=== PATIENT | male | born 1985 | race Caucasian/White ===

== ENCOUNTER 2017-07-12 10:25 | Inpatient (IN) | payer MEDICAID ==
[~2017-07-12] VITALS: Ht 180.3 cm; Wt 56.3 kg
[~2017-07-12 10:25] MED LIST: ATARAX,VISTARIL50 MG PO; CARBIDOPA/LEVOD1 TA1 PO; LEVETIRACETAM500 MG PO; ZOFRAN4 MG PO
[2017-07-12 10:30] VITALS: BP 112/63
[2017-07-12 11:19] LABS: BASO % 0.1 % (0.0-1.0); EOS # 0.1 10*3/uL (0.0-0.4); EOS % 0.6 % (1.0-4.0); HEMATOCRIT 38.6 % (42.0-52.0); HEMOGLOBIN 13.1 g/dl (14.0-18.0); LYMPH # 1.5 10*3/uL (1.3-4.4); LYMPH % 18.6 % (27.0-41.0); MEAN CELL VOLUME 88.1 fl (80.0-94.0); MEAN CORPUSCULAR HGB 29.9 pg (27.0-31.0); MEAN CORPUSCULAR HGB CONC 33.9 g/dl (33.0-37.0); MEAN PLATELET VOLUME 9.3 fl (9.6-12.3); MONO # 0.6 10*3/uL (0.1-1.0); MONO % 6.7 % (3.0-9.0); NEUT % 73.8 % (47.0-73.0); PLATELET COUNT AUTOMATED 206 10*3/uL (130-400); RED BLOOD COUNT 4.38 10*6/uL (4.50-5.90); RED CELL DISTRI WIDTH 12.2 % (0-14.5); WHITE BLOOD COUNT 8.2 10*3/uL (4.8-10.8)
[2017-07-12 11:22] LABS: BILIRUBIN NEGATIVE (NEGATIVE); BLOOD 3+ (NEGATIVE); CLARITY CLEAR (CLEAR); COLOR YELLOW (YELLOW); GLUCOSE NEGATIVE (NEGATIVE); KETONE NEGATIVE (NEGATIVE); LEUKO ESTERASE NEGATIVE (NEGATIVE); NITRITE NEGATIVE (NEGATIVE); PH 5.5 (5.0-9.0); UROBILINOGEN 0.2 E.U./dl (0.2-1.0)
[2017-07-12 11:29] LABS: URINE AMPHETAMINES < 1000 (1000ng/ml); URINE BARBITURATES < 200 (200ng/ml); URINE BENZODIAZEPINES < 200 (200ng/ml); URINE CANNABINOIDS (THC) > 50 (50ng/ml); URINE COCAINE > 300 (300ng/ml); URINE METHADONE < 300 (300ng/ml); URINE OPIATES < 300 (300ng/ml)
[2017-07-12 11:30] LABS: MUCOUS 1+
[2017-07-12 11:31] LABS: CALCIUM OXALATE CRYSTALS TRACE; URINE PHENCYCLIDINE < 25 (25ng/ml)
[2017-07-12 11:34] LABS: ALBUMIN 3.9 gm/dl (3.1-4.5); ALKALINE PHOSPHATASE 41 U/L (45-117); BUN 12 mg/dl (7-24); CHLORIDE 105 mmol/L (98-107); CREATININE 0.96 mg/dL (0.70-1.30); POTASSIUM 3.8 mmol/L (3.5-5.1); SGOT/AST 16 IU/L (3-35); SGPT/ALT 21 U/L (12-78); SODIUM 139 mmol/L (136-145); TOTAL PROTEIN 7.4 gm/dL (6.4-8.2)
[2017-07-12 13:15] VITALS: BP 117/67
[2017-07-12 13:30] VITALS: BP 117/67
[2017-07-12 16:00] VITALS: BP 101/59
[2017-07-12 20:00] VITALS: BP 135/74
[2017-07-13] VITALS: BP 102/62
[2017-07-13 03:46] VITALS: BP 103/56
[2017-07-13 08:00] VITALS: BP 111/67
[2017-07-13 12:00] VITALS: BP 122/70
[2017-07-13 16:00] VITALS: BP 110/55
[2017-07-13 20:00] VITALS: BP 108/60
[2017-07-14] VITALS: BP 114/62
[2017-07-14 08:00] VITALS: BP 101/57
[2017-07-14 12:00] VITALS: BP 103/59
[2017-07-14 16:00] VITALS: BP 122/70
[2017-07-14 20:00] VITALS: BP 97/62
[2017-07-15] VITALS: BP 102/66
[2017-07-15 06:07] LABS: CREATININE 1.02 mg/dL (0.70-1.30)
[2017-07-15 06:22] LABS: BASO % 0.3 % (0.0-1.0); EOS # 0.2 10*3/uL (0.0-0.4); EOS % 2.3 % (1.0-4.0); HEMATOCRIT 41.9 % (42.0-52.0); HEMOGLOBIN 14.1 g/dl (14.0-18.0); LYMPH # 2.5 10*3/uL (1.3-4.4); LYMPH % 38.8 % (27.0-41.0); MEAN CELL VOLUME 89.7 fl (80.0-94.0); MEAN CORPUSCULAR HGB 30.2 pg (27.0-31.0); MEAN CORPUSCULAR HGB CONC 33.7 g/dl (33.0-37.0); MEAN PLATELET VOLUME 9.8 fl (9.6-12.3); MONO # 0.5 10*3/uL (0.1-1.0); MONO % 7.4 % (3.0-9.0); NEUT # 3.3 10*3/uL (2.3-7.9); NEUT % 50.7 % (47.0-73.0); PLATELET COUNT AUTOMATED 264 10*3/uL (130-400); RED BLOOD COUNT 4.67 10*6/uL (4.50-5.90); RED CELL DISTRI WIDTH 12.1 % (0-14.5); WHITE BLOOD COUNT 6.5 10*3/uL (4.8-10.8)
[2017-07-15 08:00] VITALS: BP 108/67
[2017-07-15] MEDS ORDERED: ROPINIROLE HYD0.5 MG PO (10:29)
[2017-07-15] MEDS ORDERED: ATARAX,VISTARIL50 MG PO (10:29)
[2017-07-15] MEDS ORDERED: ZOFRAN 4 MG ED2 TAB PO (10:29)
[2017-07-15 12:00] VITALS: BP 103/62
[2017-07-15 16:00] VITALS: BP 115/58
[2017-07-15 20:00] VITALS: BP 113/60
[2017-07-16] VITALS: BP 108/60
[2017-07-16 08:00] VITALS: BP 103/57
[2017-07-16 12:00] VITALS: BP 101/53
[2017-07-16 16:00] VITALS: BP 103/57
== END 2017-07-16 16:21 | disposition home or self-care (01) | DRG 896 ==
LOC: ED 10:25 → 4E 12:18 → EDHOLD 12:18 → 4E 12:38
PROVIDERS: Internal Medicine Hospice and Palliative Medicine; Nurse Practitioner Family; ADMIT Internal Medicine
DX: F11.23 Opioid dependence with withdrawal (principal); E43 Unspecified severe protein-calorie malnutrition; F14.10 Cocaine abuse, uncomplicated; G40.909 Epilepsy, unspecified, not intractable, without status epilepticus; I44.0 Atrioventricular block, first degree; F17.210 Nicotine dependence, cigarettes, uncomplicated; F41.9 Anxiety disorder, unspecified; G25.81 Restless legs syndrome; F12.10 Cannabis abuse, uncomplicated; B18.2 Chronic viral hepatitis C; D64.9 Anemia, unspecified; R31.29 Other microscopic hematuria; D72.810 Lymphocytopenia; Z71.6 Tobacco abuse counseling; Z88.0 Allergy status to penicillin; Z83.3 Family history of diabetes mellitus

== ENCOUNTER 2017-09-14 15:28 | Inpatient (IN) | payer OTHER ==
[~2017-09-14] VITALS: Ht 177.8 cm; Wt 57.2 kg
[~2017-09-14 15:28] MED LIST changes: +ROPINIROLE HYD0.5 MG PO; +ZOFRAN 4 MG ED2 TAB PO
[2017-09-14 15:40] VITALS: BP 109/69
[2017-09-14 16:00] LABS: BILIRUBIN NEGATIVE (NEGATIVE); BLOOD NEGATIVE (NEGATIVE); CLARITY CLEAR (CLEAR); COLOR YELLOW (YELLOW); GLUCOSE NEGATIVE (NEGATIVE); KETONE NEGATIVE (NEGATIVE); LEUKO ESTERASE 1+ (NEGATIVE); NITRITE NEGATIVE (NEGATIVE); UROBILINOGEN 0.2 E.U./dl (0.2-1.0)
[2017-09-14 16:01] LABS: BASO % 0.2 % (0.0-1.0); EOS # 0.1 10*3/uL (0.0-0.4); EOS % 0.5 % (1.0-4.0); HEMATOCRIT 44.8 % (42.0-52.0); HEMOGLOBIN 14.9 g/dl (14.0-18.0); LYMPH # 1.6 10*3/uL (1.3-4.4); LYMPH % 14.6 % (27.0-41.0); MEAN CELL VOLUME 88.7 fl (80.0-94.0); MEAN CORPUSCULAR HGB 29.5 pg (27.0-31.0); MEAN CORPUSCULAR HGB CONC 33.3 g/dl (33.0-37.0); MONO # 0.5 10*3/uL (0.1-1.0); MONO % 4.1 % (3.0-9.0); NEUT # 8.8 10*3/uL (2.3-7.9); NEUT % 80.2 % (47.0-73.0); PLATELET COUNT AUTOMATED 294 10*3/uL (130-400); RED BLOOD COUNT 5.05 10*6/uL (4.50-5.90); RED CELL DISTRI WIDTH 12.5 % (0-14.5); WHITE BLOOD COUNT 10.9 10*3/uL (4.8-10.8)
[2017-09-14 16:07] LABS: BACTERIA TRACE
[2017-09-14 16:10] LABS: URINE AMPHETAMINES < 1000 (1000ng/ml); URINE BARBITURATES < 200 (200ng/ml); URINE BENZODIAZEPINES > 200 (200ng/ml); URINE CANNABINOIDS (THC) > 50 (50ng/ml); URINE COCAINE > 300 (300ng/ml); URINE METHADONE < 300 (300ng/ml); URINE OPIATES < 300 (300ng/ml)
[2017-09-14 16:14] LABS: URINE PHENCYCLIDINE < 25 (25ng/ml)
[2017-09-14 16:17] LABS: ALBUMIN 4.2 gm/dl (3.1-4.5); ALKALINE PHOSPHATASE 61 U/L (45-117); BUN 10 mg/dl (7-24); CHLORIDE 102 mmol/L (98-107); CREATININE 0.99 mg/dL (0.70-1.30); POTASSIUM 4.9 mmol/L (3.5-5.1); SGOT/AST 25 IU/L (3-35); SGPT/ALT 36 U/L (12-78); SODIUM 138 mmol/L (136-145); TOTAL PROTEIN 8.9 gm/dL (6.4-8.2)
[2017-09-14 16:20] LABS: ETHYL ALCOHOL < 3.0 mg/dl (<3)
--- NOTE | 2017-09-14 16:22 | NUR ---
32 year old MALE, [place] admitted to room # 532 for stabilization. 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 . Compliant with admission procedure. Patient denies any anxiety, but is unable to sit still, taps toes to floor continuously, looks about room, unable to focus eyes on nurse during interview. See assessment forms for additional information about patient status.
[2017-09-14 16:31] VITALS: BP 117/69
[2017-09-14 16:52] LABS: LIPASE 203 U/L (73-393)
[2017-09-14 20:00] VITALS: BP 110/47
--- NOTE | 2017-09-14 22:04 | NUR ---
CALLED DR HAYWOOD ABOUT THE SECOND EKG THAT DR HEATON PLACED. DR HAYWOOD CANCELLLD THE ACTIVE ORDER
--- NOTE | 2017-09-14 23:30 | NUR ---
PATIENT RESTING COMFORTABLY IN BED AT THIS TIME. C/O CHRONIC BACK PAIN RATED A 7. RESPIRATIONS EASY/REG. NO SXS OF DISTRESS. PLEASANT/COOPERATIVE WITH CARE. CALL LIGHT IS IN REACH. WILL MONITOR.
[2017-09-15] VITALS: BP 106/69
--- NOTE | 2017-09-15 02:52 | NUR ---
Patient reports the following symptoms of withdrawal: body aches, leg pain, nausea anD cravings. Patient given scheduled/PRN medication to control withdrawal symptoms. Close observation will be maintained.
[2017-09-15 04:00] VITALS: BP 102/59
--- NOTE | 2017-09-15 04:01 | NUR ---
Patient resting. Responding to scheduled medications with fewer complaints of pain and anxiety.
[2017-09-15 08:00] VITALS: BP 99/49
--- NOTE | 2017-09-15 08:00 | NUR ---
PT IN BED SLEEPING, AROUSES EASILY. NO DISTRESS NOTED. PT DENIES PAIN BUT C/O OF MUSCLE SPASMS OF BACK AND RESTLESS LEGS. DENIES CHEST PAIN, N/V/D. LUNGS CLEAR ON AUSCULTATION. NO EDEMA NOTED.
--- NOTE | 2017-09-15 08:29 | NUR ---
PT REQUESTED MEDICATION FOR RESTLESS LEGS AND MUSCLE SPASMS OF THE BACK. REQUIP & ROBAXIN GIVEN.
--- NOTE | 2017-09-15 09:16 | NUR ---
PT IN BED SLEEPING, NO DISTRESS NOTED. MEDICATIONS SEEM TO BE WORKING. NO SPASMS NOTED.
[2017-09-15 12:00] VITALS: BP 107/81
[2017-09-15 16:00] VITALS: BP 115/64
--- NOTE | 2017-09-15 17:50 | NUR ---
PT GIVEN PRN PO ROBAXIN AND VISTARIL FOR MUSCLE ACHES AND ANXIETY. WILL MONITOR EFFECTIVENESS.
--- NOTE | 2017-09-15 18:16 | NUR ---
PER PT, PRN MEDICATIONS EFFECTIVE.
[2017-09-15 20:00] VITALS: BP 111/67
--- NOTE | 2017-09-15 21:10 | NUR ---
PT C/O RESTLESS LEGS AND NAUSEA. REQUIP AND TRAZADONE ADMINISTERED PO. WILL MONITOR FOR EFFECTIVENESS. PT PLEASANT AND COOPERATIVE, ALERT AND ORIENTED X 3. [facility].
--- NOTE | 2017-09-15 23:10 | NUR ---
PRN MEDS EFFECTIVE. PT RESTING PEACEFULLY IN BED AT THIS TIME. CALL LIGHT IN REACH.
[2017-09-16] VITALS: BP 121/71
--- NOTE | 2017-09-16 05:59 | NUR ---
24 HR chart check completed.
[2017-09-16 08:00] VITALS: BP 99/52
--- NOTE | 2017-09-16 10:27 | NUR ---
PT IN BED IN POSITION. C/O WITHDRAEAL S/S. MEDICATED PT WITH ZOFRAN 4 MG AND ROBAXIN 750 MG WELL SCHEDULED MEDS. ENCOURAGED PT TO CALL FOR PRN MEDS. DISCUSSED D/C PLAN FOR CONTINUING REHAB. EMOTIONAL SUPPORT PROVIDED. PT DOES NOT APPEAR TO HAVE A PLAN FOR FOLLOW UP OR DOESN'T SEEM TO K NOW WHERE HE'S GONNA GO.
--- NOTE | 2017-09-16 12:02 | NUR ---
Patient resting. Responding to scheduled medications with fewer complaints of pain and anxiety.RESPS EASY ON RA. VOICES NO NEEDS.CALL LIGHT IN REACH.
[2017-09-16 16:00] VITALS: BP 102/56
--- NOTE | 2017-09-16 17:40 | NUR ---
REQUIP 0.5 MG, MOTRIN 600 MG AND ZOFRAN 4 MG GIVEN FOR C/O RESTLESSNESS, LEG CRAMPING AND NAUSEA.
[2017-09-16 20:00] VITALS: BP 106/53
--- NOTE | 2017-09-16 20:12 | NUR ---
PT ADMINISTERED ROBAXIN AND BENTYL FOR MUSCLE ACHES AND ABDOMINAL CRAMPING. WILL MONITOR FOR EFFECTIVENESS. PT RESTING IN BED AT THIS TIME. CALL LIGHT IN REACH.
--- NOTE | 2017-09-16 21:12 | NUR ---
BENTYL AND ROBAXIN EFFECTIVE. PT RESTING IN BED, CALL LIGHT IN REACH.
--- NOTE | 2017-09-16 21:26 | NUR ---
PT C/O ANXIETY. VISTARIL 50MG CAPSULE ADMINISTERED PO. WILL MONITOR FOR EFFECTIVNESS. RESTING IN BED AT THIS TIME, CALL LIGHT IN REACH.
[2017-09-17] VITALS: BP 102/52
--- NOTE | 2017-09-17 02:48 | NUR ---
24 HR chart check completed.
--- NOTE | 2017-09-17 04:26 | NUR ---
PT RESTING IN BED AT THIS TIME, NO S/S OF DISTRESS. RESPIRATIONS EASY AND UNLABORED, CALL LIGHT IN REACH.
--- NOTE | 2017-09-17 07:20 | NUR ---
24 HR chart check completed.
[2017-09-17 08:00] VITALS: BP 102/53
--- NOTE | 2017-09-17 10:16 | NUR ---
D/C PLANNING: SPOKE WITH PATIENT. PATIENT STATED THAT HE HAS A SCHEDULED APPOINMTNET WITH [employer] FOR [employer]. RIANA CÁRDENAS B.A. SOA ARCHITECT
[2017-09-17 12:00] VITALS: BP 103/56
--- NOTE | 2017-09-17 15:49 | NUR ---
MEDICATED WITH VISTARIL & TYLENOL FOR C/O SWEATS, CHILLS, TREMORS VISIBLE. PT ENCOURAGED TO NOT WAIT SO LONG TO ASK.
[2017-09-17 16:00] VITALS: BP 107/58
--- NOTE | 2017-09-17 16:54 | NUR ---
SLEEPING AFTER MEDICATED. BLANKETS PULLED UP AROUND HEAD BUT ABLE TO SEE THE FACE & REP EASY & NONLABORED
[2017-09-17 20:00] VITALS: BP 110/65
--- NOTE | 2017-09-17 20:24 | NUR ---
PATIENT LAYING IN BED WITH SHEETS DRAWN OVER HEAD. PATIENT HAD COMPLAINTS OF HEADACHE, TREMORS, RESTLESSNESS, AND NAUSEA. PATIENT WAS POLITE AND COOPERATIVE UPON ASSESSMENT, BUT HAD NON-VERBAL CUES OF DISCOMFORT. VITALS ARE WNL AND 100% O2 ON RA. CALL LIGHT IS WITHIN REACH.
--- NOTE | 2017-09-17 20:28 | NUR ---
PATIENT GIVEN ZOFRAN, ROBAXIN, MOTRIN, AND REQUIP PER PT REQUEST FOR C/O RESTLESSNESS, HEADACHE PAIN RATED 8/10, AND NAUSEA. WILL CONTINUE TO MONITOR AND REASSESS PATIENT.
--- NOTE | 2017-09-17 22:15 | NUR ---
MEDICATION HAVE BEEN EFFECTIVE IN ALLEVIATING NAUSEA AND HEADACHE PAIN. PATIENT VERBALIZES THAT RESTLESSNESS FEELS BETTER. WILL CONTINUE TO MONITOR.
[2017-09-18] VITALS: BP 94/68
--- NOTE | 2017-09-18 00:30 | NUR ---
PATIENT IS RESTING IN BED. PATIENT HAS NO FURTHER REQUESTS OR COMPLAINTS AT THIS TIME. PATIENT WAS COOPERATIVE UPON ASSESSMENT AND ABLE TO ANSWER QUESTIONS CLEARLY AND CONCISELY. CALL LIGHT IS WITHIN REACH. SEE SHIFT ASSESSMENT.
--- NOTE | 2017-09-18 06:31 | NUR ---
PATIENT IS RESTING COMFORTABLY IN BED. PATIENT HAS SLEPT THROUGHOUT THE NIGHT WITHOUT ANY INTERRUPTIONS. PATIENT DENIES ANY S&S OF DT'S AT THIS TIME. PATIENT HAS BEEN COOPERATIVE THROUGHOUT THE NIGHT. SEE SHIFT ASSESSMENT. CALL LIGHT IS WITHIN REACH.
--- NOTE | 2017-09-18 07:51 | NUR ---
Shift chart check completed.
[2017-09-18 08:00] VITALS: BP 108/60
[2017-09-18] MEDS ORDERED: ROPINIROLE HYD0.5 MG PO (11:55)
[2017-09-18] MEDS ORDERED: ZOFRAN 4 MG ED2 TAB PO (11:55)
[2017-09-18] MEDS ORDERED: ATARAX,VISTARIL50 MG PO (11:55)
--- NOTE | 2017-09-18 13:16 | NUR ---
LEFT A MESSAGE WITH JIM REESE FROM [facility] TO MAKE ARRANGEMENTS FOR PATIENT AT DISCHARGE. PHYSICIAN PUT DISCHARGE ORDER IN AND PATIENT NEEDS HOUSING AND TRANSPORTATION. PATIENT SAID JIM IS HIS COMPUTER SYSTEM SPECIALIST AND GAVE ME THIS NUMBER .
--- NOTE | 2017-09-18 13:35 | NUR ---
PATIENTS PATIENT SERVICES SPECIALIST JIM RETURNED MY CALL. SHE SAID THAT SHE IS NOT WORKING TODAY AND WOULD HAVE TO GET IT CLEARED WITH HER AXLE BEARING POLISHER TO WHETHER OR NOT SHE COULD PICK PATIENT UP. WHEN SHE CALLED ME BACK, SHE SAID SHE NOW HAS A FAMILY EMERGENCY WITH HER DAUGHTER AND WILL NOT BE ABLE TO TRANSPORT PATIENT. SHE SAID SHE WILL PUT OUT A MASS TXT MESSAGE WITH [employer] TO SEE IF ANYONE WOULD/COULD COME AND PICK THE PATIENT UP.
--- NOTE | 2017-09-18 15:55 | NUR ---
NO WORD FROM JIM REGARDING TRANSPORTATION FOR PATIENT TODAY OR TOMORROW.
[2017-09-18 16:00] VITALS: BP 94/56
--- NOTE | 2017-09-18 16:51 | NUR ---
UPDATED PHYSICIAN ON PATIENT NOT HAVING ANY TRANSPORTATION UPON DISCHARGE.
[2017-09-18 20:00] VITALS: BP 90/50
[2017-09-19] VITALS: BP 98/57
--- NOTE | 2017-09-19 04:13 | NUR ---
Motrin and Requip effective to reduce withdrawal symptoms and allow to rest quietly. Resp easy and regular. Will continue to closely monitor.
--- NOTE | 2017-09-19 06:18 | NUR ---
Refused morning labs, Dr. Orellana aware.
--- NOTE | 2017-09-19 06:46 | NUR ---
Denies need for any medications at this time. Will continue to monitor.
[2017-09-19 08:00] VITALS: BP 106/46
[2017-09-19 12:00] VITALS: BP 102/52
--- NOTE | 2017-09-19 14:03 | NUR ---
LEFT A MESSAGE WITH JIM (PT'S DIRECTOR SPORTS) TO SEE IF TRANSORTATION ARRANGEMENTS HAVE BEEN MADE. NOTIFIED HER THAT PHYSICIANS SAID PATIENT IS READY FOR DISCHARGE.
--- NOTE | 2017-09-19 16:45 | NUR ---
Discharge instructions reviewed with patient/family. Patient receptive and verbalizes understanding. Follow-up care arranged. Written instructions given to patient/family. Patient ambulated from unit and was transported to [place] by a taxi cab provided by the [facility]. DAVID BOWEN
== END 2017-09-19 16:45 | disposition home or self-care (01) | DRG 897 ==
LOC: ED 15:28 → EDHOLD 15:55 → 5E 15:55
PROVIDERS: Internal Medicine; Nurse Practitioner Family; ADMIT Internal Medicine
DX: F11.23 Opioid dependence with withdrawal (principal); B18.2 Chronic viral hepatitis C; D72.810 Lymphocytopenia; F41.9 Anxiety disorder, unspecified; G40.909 Epilepsy, unspecified, not intractable, without status epilepticus; I44.0 Atrioventricular block, first degree; G25.81 Restless legs syndrome; D72.829 Elevated white blood cell count, unspecified; F13.10 Sedative, hypnotic or anxiolytic abuse, uncomplicated; F14.10 Cocaine abuse, uncomplicated; F12.10 Cannabis abuse, uncomplicated; F17.210 Nicotine dependence, cigarettes, uncomplicated; Z71.6 Tobacco abuse counseling; Z88.0 Allergy status to penicillin; Z83.3 Family history of diabetes mellitus; Z79.899 Other long term (current) drug therapy